=== PATIENT | male | born 1955 | race Caucasian/White ===

== ENCOUNTER 2020-05-05 21:31 | Emergency (ER) | payer OTHER, BC ==
[~2020-05-05] VITALS: Ht 160 cm; Wt 88.5 kg
[2020-05-05] MEDS ORDERED: BENAZEPRIL HCL40 MG PO (21:42)
[2020-05-05] MEDS ORDERED: LUNESTA3 MG PO ×2 (21:42→23:19)
[2020-05-05] MEDS ORDERED: LYRICA150 MG PO ×2 (21:43→23:21)
[2020-05-05] MEDS ORDERED: NORVASC5 M1 PO (21:43)
[2020-05-05] MEDS ORDERED: ESZOPICLONE2 MG PO (21:44)
[2020-05-05] MEDS ORDERED: NORCO 10-325 T1 EACH PO ×2 (21:44→23:19)
[2020-05-05] MEDS ORDERED: FLOMAX0.4 MG PO ×2 (21:44→23:21)
[2020-05-05] MEDS ORDERED: [UNRECOGNIZED DRUG - OTHER] PO (21:45)
[2020-05-05] MEDS ORDERED: VOLTAREN GEL 1100 G1 TOP (21:45)
[2020-05-05] MEDS ORDERED: NORVASC 2.5 MG2.5 M1 PO (23:20)
[2020-05-05] MEDS ORDERED: BENAZEPRIL HCL20 MG PO (23:20)
[2020-05-05] MEDS ORDERED: CELEBREX 200 M200 MG PO (23:22)
[2020-05-06 00:30] LABS: HEMATOCRIT 40.7 % (42.0-52.0); MCH 30.6 pg (26.0-34.0); MCHC 34.4 g/dL (28.0-37.0); MCV 88.9 fL (80.0-100.0); PLATELET COUNT 288 thou/uL (150-400); RBC 4.58 mil/uL (4.50-6.00); RDW 14.3 % (10.5-14.5); WBC 10.9 thou/uL (4.0-11.0)
[2020-05-06 00:34] LABS: CALCIUM 8.9 mg/dL (8.5-10.1); CREATININE 0.7 mg/dL (0.7-1.3)
[2020-05-06 01:40] LABS: ABSOLUTE NEUTROPHILS 4.9 thou/uL (1.4-8.2); PLATELET ESTIMATE NORMAL
[2020-05-06 02:13] LABS: BF NUCLEATED CELLS 69444 /mm3; BF RBC 13705 /mm3; COLOR YELLOW; TOTAL VOLUME 10 mL
[2020-05-06 02:14] LABS: CLARITY TURBID; SOURCE KNEE JOINT
[2020-05-06 03:08] LABS: BF MACROPHAGE 2 %; BF NEUTROPHILS 91 %
[2020-05-06 03:33] VITALS: BP 102/63
[2020-05-06] MEDS ORDERED: DOXYCYCLINE 10100 MG PO ×3 (03:43→03:51)
== END 2020-05-06 04:05 | disposition home or self-care (01) ==
LOC: ER 21:31
PROVIDERS: Emergency Medicine
DX: M25.562 Pain in left knee (principal); R22.42 Localized swelling, mass and lump, left lower limb; I10 Essential (primary) hypertension; Z79.899 Other long term (current) drug therapy; Z88.8 Allergy status to other drugs, medicaments and biological substances